=== PATIENT | female | born 1965 | race Two or more races ===

== ENCOUNTER 2016-10-21 09:54 | Emergency (ER) | payer OTHER ==
[~2016-10-21] VITALS: Ht 162.6 cm; Wt 81.6 kg
[~2016-10-21 09:54] MED LIST: RANI150T2 PO; TRAM50TA PO
[2016-10-21] MEDS: FENTANYL PF 100 MCG/2 ML VIAL. IV PRN ×2 (10:50→11:36)
[2016-10-21 10:59] LABS: BASO # 0.1 x10^3/uL (0.0-0.2); BASO % 1 % (0-3); EOS % 0 % (0-3); HEMATOCRIT 41.2 % (36.0-47.0); HEMOGLOBIN 13.8 g/dL (12.0-15.5); LYMPH # 1.9 x10^3/uL (1.0-4.8); LYMPH % 32 % (24-48); MEAN CORPUSCULAR HEMOGLOBIN 31 pg (25-35); MEAN CORPUSCULAR HGB CONC 34 g/dL (31-37); MEAN CORPUSCULAR VOLUME 91 fL (79-100); MONO % 8 % (0-9); NEUT % 59 % (31-73); PLATELET COUNT 230 x10^3/uL (140-400); RED BLOOD COUNT 4.54 x10^6/uL (3.50-5.40); RED CELL DISTRIBUTION WIDTH 14.2 % (11.5-14.5)
[2016-10-21] MEDS ORDERED: ONDANSETRON PF 4 MG/2 ML VIAL. IV ONE (11:00)
[2016-10-21] MEDS ORDERED: IV NORMAL SALINE 1000ML BAG 1,000 ML IV ONE (11:00)
[2016-10-21 11:06] LABS: BILIRUBIN,URINE NEGATIVE (NEG); GLUCOSE,URINE NEGATIVE (NEG); NITRITE,URINE NEGATIVE (NEG); PH,URINE 5.5; PROTEIN,URINE NEGATIVE (NEG-TRACE); UROBILINOGEN,URINE 0.2 mg/dL (0.2 mg/dL)
[2016-10-21 11:07] LABS: CALCIUM 8.8 mg/dL (8.5-10.1); CREATININE 0.6 mg/dL (0.6-1.0); GFR 106.3
[2016-10-21 11:13] LABS: ALBUMIN 3.5 g/dL (3.4-5.0); ALBUMIN/GLOBULIN RATIO 0.9 (1.0-1.7); TOTAL BILIRUBIN 0.2 mg/dL (0.2-1.0); TOTAL PROTEIN 7.3 g/dL (6.4-8.2)
--- NOTE | 2016-10-21 11:15 | RAD ---
Indication epigastric pain for several hours. A single view of the chest as well as flat and upright films of the abdomen were obtained. Comparison is made to a study 02/19/2010. The heart and pulmonary vessels are normal. The lungs are clear. There is no free air. The abdominal gas pattern is normal. No organomegaly or abnormal calculi are seen. A calcification in the right pelvis is noted compatible with a phlebolith similar to the previous exam. IMPRESSION: No acute or significant finding seen in the chest or abdomen on plain films
[2016-10-21 11:19] LABS: BACTERIA,URINE FEW /HPF (0-FEW); RBC,URINE RARE /HPF (0-2); SQUAMOUS EPITHELIAL CELL,UR FEW /LPF; WBC,URINE RARE /HPF (0-4)
--- NOTE | 2016-10-21 12:37 | RAD ---
Indication right upper quadrant pain. Grayscale imaging was performed. The examination was targeted to the right upper quadrant. No similar imaging is available. There is increased attenuation of the ultrasound beam by the liver compatible with fatty infiltration. A focal mass lesion is not seen in the visualized liver. The gallbladder appears normal. The common bile duct diameter of approximately 3 mm is normal. The visualized inferior vena cava is unremarkable and the right kidney appears normal. IMPRESSION: Normal gallbladder. Fatty infiltration of the liver
[2016-10-21] MEDS ORDERED: ONDA4TAB10 SL (13:15)
--- NOTE | 2016-10-21 13:16 | PHYS DOC ---
Past Medical History Past Medical History: No Pertinent History Past Surgical History: Other Additional Past Surgical Histo: CARPEL TUNNEL L, L SHOULDER, RIGHT ANKLE 12/08 Alcohol Use: Occasionally Drug Use: None Adult General Chief Complaint Chief Complaint: ABDOMINAL PAIN HPI HPI Patient is a 51 year old female who presents with abdominal pain. The patient reports onset of pain about 1 hour prior to arrival while drinking a yogurt smoothie. She states she had sudden onset of severe epigastric & RUQ pain associated with vomiting x 1. Denies fevers/chills, hematemesis, diarrhea, constipation, hematochezia/melena, dysuria/hematuria. She has previous history of similar pain & has been told that she has gastric ulcers, inconsistently takes nexium. She is supposed to have EGD next week as an outpatient. She drinks alcohol occasionally. Review of Systems Review of Systems Constitutional: Denies fever or chills HENT: Denies nasal congestion or sore throat Respiratory: Denies cough or shortness of breath Cardiovascular: Denies chest pain or edema GI: Reports abdominal pain, nausea, vomiting, denies bloody stools or diarrhea : Denies dysuria or hematuria Musculoskeletal: Denies back pain or joint pain Integument: Denies rash or skin lesions Neurologic: Denies headache, focal weakness or sensory changes Current Medications Current Medications Current Medications Medications (Trade) Dose Ordered Sig/Arielle Start Time Stop Time Status Last Admin Dose Admin Fentanyl Citrate (Fentanyl 2ml Vial) 50 mcg PRN Q15MIN PRN 10/21/16 10:45 10/21/16 13:34 DC 10/21/16 11:36 50 MCG Ondansetron HCl (Zofran) 4 mg 1X ONCE 10/21/16 11:00 10/21/16 11:01 DC 10/21/16 10:49 4 MG Sodium Chloride (Iv Sodium Chloride 0.9% 1000ml Bag) 1,000 ml @ 1,000 mls/hr 1X ONCE 10/21/16 11:00 10/21/16 11:59 DC 10/21/16 10:53 1,000 MLS/HR Allergies Allergies Allergies Coded Allergies Type Severity Reaction Last Updated Verified No Known Drug Allergies 10/17/15 No Physical Exam Physical Exam Constitutional: Well developed, well nourished, appears very uncomfortable, non -toxic appearance. HENT: Normocephalic, atraumatic, bilateral external ears normal, oropharynx moist, nose normal. Eyes: conjunctiva normal, no discharge. Neck: supple, no stridor. Cardiovascular: RRR, no murmurs, no edema. Lungs & Thorax: LCTAB, no wheezing, no respiratory distress. Abdomen: normal bowel sounds, soft, epigastric & RUQ tenderness present without rebound/guarding, no masses or pulsatile masses, nondistended. Skin: Warm, dry, no erythema, no rash. Back: No CVA tenderness. Extremities: No tenderness, no edema. Neurologic: Alert and oriented X 3, no focal deficits noted. Psychologic: Affect normal, judgement normal, mood normal. Current Patient Data Vital Signs Vital Signs Date Time Temp Pulse Resp B/P Pulse Ox O2 Delivery O2 Flow Rate FiO2 10/21/16 13:25 68 18 136/62 98 Room Air 10/21/16 10:12 97.5 97.5 Lab Values Laboratory Tests Test 10/21/16 09:35 10/21/16 10:25 10/21/16 10:40 POC Urine HCG, Qualitative Hcg negative (Negative) Urine Collection Type Void Urine Color Yellow Urine Clarity Clear Urine pH 5.5 Urine Specific [place] 1.015 Urine Protein Negativemg/dL (NEG-TRACE) Urine Glucose (UA) Negativemg/dL (NEG) Urine Ketones (Stick) Negativemg/dL (NEG) Urine Blood Negative (NEG) Urine Nitrite Negative (NEG) Urine Bilirubin Negative (NEG) Urine Urobilinogen Dipstick 0.2mg/dL (0.2 mg/dL) Urine Leukocyte Esterase Negative (NEG) Urine RBC Rare/HPF (0-2) Urine WBC Rare/HPF (0-4) Urine Squamous Epithelial Cells Few/LPF Urine Bacteria Few/HPF (0-FEW) Urine Mucus Marked/LPF White Blood Count 6.0x10^3/uL (4.0-11.0) Red Blood Count 4.54x10^6/uL (3.50-5.40) Hemoglobin 13.8g/dL (12.0-15.5) Hematocrit 41.2% (36.0-47.0) Mean Corpuscular Volume 91fL (79-100) Mean Corpuscular Hemoglobin 31pg (25-35) Mean Corpuscular Hemoglobin Concent 34g/dL (31-37) Red Cell Distribution Width 14.2% (11.5-14.5) Platelet Count 230x10^3/uL (140-400) Neutrophils (%) (Auto) 59% (31-73) Lymphocytes (%) (Auto) 32% (24-48) Monocytes (%) (Auto) 8% (0-9) Eosinophils (%) (Auto) 0% (0-3) Basophils (%) (Auto) 1% (0-3) Neutrophils # (Auto) 3.5x10^3uL (1.8-7.7) Lymphocytes # (Auto) 1.9x10^3/uL (1.0-4.8) Monocytes # (Auto) 0.5x10^3/uL (0.0-1.1) Eosinophils # (Auto) 0.0x10^3/uL (0.0-0.7) Basophils # (Auto) 0.1x10^3/uL (0.0-0.2) Sodium Level 136mmol/L (136-145) Potassium Level 4.0mmol/L (3.5-5.1) Chloride Level 101mmol/L (98-107) Carbon Dioxide Level 28mmol/L (21-32) Anion Gap 7 (6-14) Blood Urea Nitrogen 9mg/dL (7-20) Creatinine 0.6mg/dL (0.6-1.0) Estimated GFR (Cockcroft-Gault) 106.3 BUN/Creatinine Ratio 15 (6-20) Glucose Level 115mg/dL (70-99) H Calcium Level 8.8mg/dL (8.5-10.1) Total Bilirubin 0.2mg/dL (0.2-1.0) Aspartate Amino Transferase (AST) 16U/L (15-37) Alanine Aminotransferase (ALT) 29U/L (14-59) Alkaline Phosphatase 49U/L (46-116) Troponin I Quantitative < 0.017ng/mL (0.000-0.055) Total Protein 7.3g/dL (6.4-8.2) Albumin 3.5g/dL (3.4-5.0) Albumin/Globulin Ratio 0.9 (1.0-1.7) L Lipase 119U/L (73-393) Laboratory Tests 10/21/16 10:40 Laboratory Tests 10/21/16 10:40 EKG EKG interpreted by me: NSR rate 64, no acute ST/T wave changes, normal intervals, no ectopy.[] Radiology/Procedures Radiology/Procedures PROCEDURE: ACUTE ABDOMEN SERIES Indication epigastric pain for several hours. A single view of the chest as well as flat and upright films of the abdomen were obtained. Comparison is made to a study 02/19/2010. The heart and pulmonary vessels are normal. The lungs are clear. There is no free air. The abdominal gas pattern is normal. No organomegaly or abnormal calculi are seen. A calcification in the right pelvis is noted compatible with a phlebolith similar to the previous exam. IMPRESSION: No acute or significant finding seen in the chest or abdomen on plain films DICTATED and SIGNED BY: VINOD FITCH MD DATE: 10/21/16 1110 PROCEDURE: ABDOMEN LTD Indication right upper quadrant pain. Grayscale imaging was performed. The examination was targeted to the right upper quadrant. No similar imaging is available. There is increased attenuation of the ultrasound beam by the liver compatible with fatty infiltration. A focal mass lesion is not seen in the visualized liver. The gallbladder appears normal. The common bile duct diameter of approximately 3 mm is normal. The visualized inferior vena cava is unremarkable and the right kidney appears normal. IMPRESSION: Normal gallbladder. Fatty infiltration of the liver DICTATED and SIGNED BY: VINOD FITCH MD DATE: 10/21/16 1233[] Course & Med Decision Making Course & Med Decision Making Pertinent Labs and Imaging studies reviewed. (See chart for details) The patient presents with abdominal pain. Gave IV fluids, zofran, pain medication, GI cocktail. Labs, XR, & US show no acute process. She felt better after interventions here & was comfortable with discharge home. Recommend rest, PO hydration, zofran for nausea, continue nexium. Follow up with primary care & with GI for EGD as scheduled. Come back for high fever, severe pain, uncontrolled vomiting, blood in emesis or stools, any otherwise worsening condition. Discharged home in stable & improved condition. [] Dragon Disclaimer Dragon Disclaimer This electronic medical record was generated, in whole or in part, using a voice recognition dictation system. Departure Departure Impression: Primary Impression: Abdominal pain Additional Impression: Nausea & vomiting Disposition: 01 HOME, SELF-CARE Condition: STABLE Referrals: ERIKA AMAYA MD (PCP) Patient Instructions: Abdominal Pain, Ecil-no-Ecrr Additional Instructions: You were seen in the emergency department today for abdominal pain. Tests here did not show a serious cause of symptoms. Please rest, drink clear fluids, take zofran for nausea, take nexium daily. Follow up with Dr. Saba Ag in 2 -3 days. Come back for high fever, severe pain, uncontrolled vomiting, any otherwise worsening condition. Scripts Ondansetron (Zofran Odt)4 Mg Tab.rapdis1 Tab SL Q8HRS PRN NAUSEA #10 TAB Prov:DANDRE DAY MD 10/21/16 Problem Qualifiers DANDRE DAY MD Oct 21, 2016 13:16
[2016-10-21 13:25] VITALS: BP 136/62
--- NOTE | 2016-10-21 15:12 | EKG ---
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
== END 2016-10-21 13:33 | disposition home or self-care (01) ==
LOC: ER 09:54
DX: R10.11 Right upper quadrant pain (principal); R10.13 Epigastric pain; R11.2 Nausea with vomiting, unspecified; K76.0 Fatty (change of) liver, not elsewhere classified; Z87.19 Personal history of other diseases of the digestive system
CPT/HCPCS: 36415; 74022; 76705; 80053; 81001; 81025; 83690; 84484; 85027; 93005; 96361; 96374; 96375; 96376; 99285; J2405; J3010; J7030

== ENCOUNTER → 2017-02-04 | Outpatient (CLI) | payer OTHER ==
[~2017-02-04] MED LIST changes: +ONDA4TAB10 SL
--- NOTE | 2017-02-04 16:18 | RAD ---
Pelvic ultrasound, 02/04/2017: History: Ovarian cysts Transabdominal and transvaginal scans were obtained. There are multiple Nabothian cysts in the cervix. The largest of these measures 1.3 cm. The central uterine echo complex measures 10 mm in AP dimension. The uterus is otherwise unremarkable. The ovaries are within normal limits in size. Small cysts are present in both ovaries. These include a 19 mm simple cyst in the left ovary. A 13 mm thick-walled cyst in the right ovary is also probably a functional cyst. The adnexal regions are otherwise unremarkable. No free fluid is evident in the pelvis. IMPRESSION: 1. Small bilateral ovarian cysts. 2. Small Nabothian cysts. 3. The pelvic ultrasound is otherwise unremarkable.
== END | disposition home or self-care (01) ==
LOC: US 14:52
PROVIDERS: ATTEND Family Medicine
DX: N83.202 Unspecified ovarian cyst, left side (principal); N83.201 Unspecified ovarian cyst, right side; N88.8 Other specified noninflammatory disorders of cervix uteri
CPT/HCPCS: 76830; 76856

== ENCOUNTER 2017-04-20 09:38 | Emergency (ER) | payer OTHER ==
[2017-04-20 10:02] VITALS: BP 166/77
[2017-04-20] MEDS ORDERED: KETOROLAC 60 MG/2 ML INJ. IM ONE (10:45)
[2017-04-20] MEDS ORDERED: HYDROmorphone 2 MG/ML VIAL IM ONE (10:45)
[2017-04-20] MEDS ORDERED: ACET325T9 PO (11:00)
[2017-04-20] MEDS ORDERED: NAPR500T PO (11:00)
[2017-04-20] MEDS ORDERED: DIAZ5TAB PO (11:00)
--- NOTE | 2017-04-20 11:00 | PHYS DOC ---
Past Medical History Past Medical History: No Pertinent History, Ovarian Cyst, Other Past Surgical History: Other Additional Past Surgical Histo: CARPEL TUNNEL L, L SHOULDER, RIGHT ANKLE 12/08 Alcohol Use: Occasionally Drug Use: None Adult General Chief Complaint Chief Complaint: HEADACHE HPI HPI She is a pleasant otherwise healthy 52-year-old female who presents today with a 2 day history of left-sided neck pain now causing a mild frontal headache. Patient works at [employer] doing [employer] who is noted over last several years intermittent neck pain on the left described as a sharp nodded strain. She woke yesterday with similar symptoms that she's had in the past. Is not worse of life and sudden onset. It is not midline tenderness to the lateral left of the neck. It is localized with pain that radiates above the scalp causing a tension-like headache. She causes a bandlike squeezing that causes no change in vision, no nausea no vomiting or photophobia. Patient denies any fevers, URI symptoms or other neurologic deficits. Pain is localized normally she takes couple Tylenol and grossly completely. This. Episode is not gotten better with Tylenol. She was wanting to go to work today because the neck pain she was not able sleep well decided not to go to work but considered, the ER for an evaluation. She denies any chest pain, trauma, nausea, vomiting, diarrhea , abdominal pain or other symptoms. She denies any numbness and tingling to the upper extremities. She has had a history of bilateral carpal tunnel releases but no new symptoms today Review of Systems Review of Systems Constitutional: Denies fever or chills [] Eyes: Denies change in visual acuity, redness, or eye pain [] HENT: Denies nasal congestion or sore throat [] Respiratory: Denies cough or shortness of breath [] Cardiovascular: No additional information not addressed in HPI [] GI: Denies abdominal pain, nausea, vomiting, bloody stools or diarrhea [] : Denies dysuria or hematuria [] Musculoskeletal: Her central complaint is neck pain. Integument: Denies rash or skin lesions [] Neurologic: Denies headache, focal weakness or sensory changes [] Endocrine: Denies polyuria or polydipsia [] Current Medications Current Medications Current Medications Medications (Trade) Dose Ordered Sig/Arielle Start Time Stop Time Status Last Admin Dose Admin Diazepam (Valium) 10 mg 1X ONCE 04/20/17 10:45 04/20/17 10:46 DC 04/20/17 10:49 10 MG Hydromorphone HCl (Dilaudid) 0.5 mg 1X ONCE 04/20/17 10:45 04/20/17 10:46 DC 04/20/17 10:46 0.5 MG Ketorolac Tromethamine (Toradol Im) 60 mg 1X ONCE 04/20/17 10:45 04/20/17 10:46 DC 04/20/17 10:48 60 MG Allergies Allergies Allergies Coded Allergies Type Severity Reaction Last Updated Verified No Known Drug Allergies 10/17/15 No Physical Exam Physical Exam Vital signs on the chart noted to be hypertensive Constitutional: Well developed, well nourished, no acute distress, non-toxic appearance. Patient laying quietly on her side complaining of neck pain with evaluated. HENT: Normocephalic, atraumatic, bilateral external ears normal, oropharynx moist, no oral exudates, nose normal. [] Eyes: PERRLA, EOMI, conjunctiva normal, no discharge. [] Neck: Normal range of motion, patient does have tenderness test reproducible over the superior belly of the trapezius muscle on the left. An incision surgeon point on the skull. There is no focal rash or warmth to the wound. There is no midline tenderness palpation. Patient has negative Spurling's test Cardiovascular:Heart rate regular rhythm, no murmur [] Lungs & Thorax: Bilateral breath sounds clear to auscultation [] Skin: Warm, dry, no erythema, no rash. [] Back: No tenderness, no CVA tenderness. [] Extremities: No tenderness, no cyanosis, no clubbing, ROM intact, no edema. [] Neurologic: Alert and oriented X 3, normal motor function, normal sensory function, no focal deficits noted. [] Current Patient Data Vital Signs Vital Signs Date Time Temp Pulse Resp B/P (MAP) Pulse Ox O2 Delivery O2 Flow Rate FiO2 04/20/17 10:02 98.1 64 18 166/77 (106) 99 Room Air 98.1 EKG EKG [] Radiology/Procedures Radiology/Procedures [] Course & Med Decision Making Course & Med Decision Making Pertinent Labs and Imaging studies reviewed. (See chart for details) Patient presents with likely torticollis and local muscle spasm within the neck. This is likely contributing to tension headache given her postural changes. Patient has a normal neuro exam, focal reproducible pain on exam. Doubt meningitis, or cervical radiculopathy. No evidence of vascular compromise or neuropathy in the upper extremity from C5 to T1. There is no midline tenderness palpation doubt cervical spine injury. She feels markedly improved and the time is 10:57 AM she'll be given oral medications to treat her symptoms. [] Dragon Disclaimer Dragon Disclaimer This electronic medical record was generated, in whole or in part, using a voice recognition dictation system. Departure Departure Impression: Primary Impression: Torticollis Additional Impressions: Sprain of cervical neck Tension headache Disposition: HOME, SELF-CARE Condition: IMPROVED Referrals: ERIKA AMAYA MD (PCP) Patient Instructions: Hypertension, Tension Headache, Torticollis, Acute Additional Instructions: My discharge plan Follow up: In addition patient is asked to followup with their primary doctor, within a week for followup examination and to address patient's ongoing medical conditions. Patient is advised that in the Emergency Department primary complaints are addressed and only in light of known signs and symptoms. Patient should return immediately to the emergency department if new signs and symptoms develop or patient's condition worsens in any way. At time of discharge patient was in stable condition and had verbalized understanding of the discharge instructions. Scripts Diazepam (VALIUM) 5 Mg Tablet 5 MG PO TID for MUSCLE SPASMS for 5 Days, #15 TAB Prov: MANUEL GARDINER MD 04/20/17 Acetaminophen (TYLENOL) 325 Mg Tablet 1-2 TAB PO QID, #60 TAB 0 Refills Prov: MANUEL GARDINER MD 04/20/17 Naproxen (NAPROSYN) 500 Mg Tablet 1 TAB PO BID, #14 TAB 1 Refill Prov: MANUEL GARDINER MD 04/20/17 Problem Qualifiers MANUEL GARDINER MD Apr 20, 2017 11:00
== END 2017-04-20 11:09 | disposition home or self-care (01) ==
LOC: ER 09:38
DX: S13.4XXA Sprain of ligaments of cervical spine, initial encounter (principal); M43.6 Torticollis; G44.209 Tension-type headache, unspecified, not intractable; G56.03 Carpal tunnel syndrome, bilateral upper limbs; X58.XXXA Exposure to other specified factors, initial encounter; Y93.89 Activity, other specified; Y99.8 Other external cause status; Y92.89 Other specified places as the place of occurrence of the external cause
CPT/HCPCS: 96372; 99284; J1170; J1885; J3360

== ENCOUNTER 2017-06-13 21:20 | Emergency (ER) | payer OTHER ==
[~2017-06-13] VITALS: Ht 157.5 cm; Wt 77.1 kg
[~2017-06-13 21:20] MED LIST changes: +ACET325T9 PO; +DIAZ5TAB PO; +NAPR-683 PO
--- NOTE | 2017-06-13 21:45 | PHYS DOC ---
Past Medical History Past Medical History: No Pertinent History, Ovarian Cyst, Other Past Surgical History: Other Additional Past Surgical Histo: CARPEL TUNNEL L, L SHOULDER, RIGHT ANKLE 12/08 Alcohol Use: Occasionally Drug Use: None Adult General Chief Complaint Chief Complaint: ABDOMINAL PAIN HPI HPI Patient is a 52 year old female with history of gastritis who presents acute onset of midepigastric 3 hours prior to arrival after eating. Patient describes burning nonradiating, rated moderate to severe. Denies symptoms of associated with nausea, no vomiting hematemesis coffee-ground emesis, bloody stools or dark tarry stools.Denies shortness breath, palpitations, fever chills or sweats. Patient states they did not find ulcers, but that she was diagnosed with gastritis. History of intermittent epigastric pain with recent EGD in spring. She takes omeprazole 20 mg once daily. Patient has also had gallbladder ultrasound in the past several months which was normal. [] Review of Systems Review of Systems ROS as per HPI. All other ROS are negative [] All other systems were reviewed and found to be within normal limits, except as documented in this note. Current Medications Current Medications Current Medications Medications (Trade) Dose Ordered Sig/Arielle Start Time Stop Time Status Last Admin Dose Admin Famotidine (Pepcid) 20 mg 1X ONCE 06/13/17 22:00 06/13/17 22:01 DC 06/13/17 21:52 20 MG Haloperidol Lactate (Haldol) 2.5 mg 1X ONCE 06/13/17 23:00 06/13/17 23:01 DC 06/13/17 22:53 2.5 MG Info (Do NOT chart on this entry -- for MONITORING) 1 each PRN DAILY PRN 06/13/17 23:00 06/14/17 00:17 IN Iohexol (Omnipaque 300 Mg/ml) 75 ml 1X ONCE 06/13/17 23:00 06/13/17 23:01 DC 06/13/17 23:12 75 ML Multi-Ingredient Mouthwash/Gargle (Gi Cocktail Single Dose) 30 ml 1X ONCE 06/13/17 22:00 06/13/17 22:01 DC 06/13/17 22:09 30 ML Ondansetron HCl (Zofran Odt) 8 mg 1X ONCE 06/13/17 22:00 06/13/17 22:01 DC 06/13/17 21:52 8 MG Allergies Allergies Allergies Coded Allergies Type Severity Reaction Last Updated Verified No Known Drug Allergies 10/17/15 No Physical Exam Physical Exam Constitutional: Well developed, well nourished, moderate discomfort secondary to pain. [] HENT: Normocephalic, atraumatic, bilateral external ears normal, oropharynx moist, no oral exudates, nose normal. [] Eyes: PERRLA, EOMI, conjunctiva normal, no discharge. [] Neck: Normal range of motion, no tenderness, supple, no stridor. [] Cardiovascular:Heart rate regular rhythm, no murmur [] Lungs & Thorax: Bilateral breath sounds clear to auscultation [] Abdomen: Bowel sounds normal, soft, mid epigastric pain/tenderness, no masses, no pulsatile masses. [] Neurologic: Alert and oriented X 3, normal motor function, normal sensory function, no focal deficits noted. [] Psychologic: Affect normal, judgement normal, mood normal. [] Current Patient Data Vital Signs Vital Signs Date Time Temp Pulse Resp B/P (MAP) Pulse Ox O2 Delivery O2 Flow Rate FiO2 06/13/17 23:30 70 175/78 (110) 94 Room Air 06/13/17 21:30 98.2 22 98.2 Lab Values Laboratory Tests Test 06/13/17 21:33 06/13/17 22:35 POC Urine HCG, Qualitative Hcg negative (Negative) White Blood Count 6.1 x10^3/uL (4.0-11.0) Red Blood Count 4.53 x10^6/uL (3.50-5.40) Hemoglobin 13.7 g/dL (12.0-15.5) Hematocrit 41.5 % (36.0-47.0) Mean Corpuscular Volume 92 fL (79-100) Mean Corpuscular Hemoglobin 30 pg (25-35) Mean Corpuscular Hemoglobin Concent 33 g/dL (31-37) Red Cell Distribution Width 13.8 % (11.5-14.5) Platelet Count 241 x10^3/uL (140-400) Neutrophils (%) (Auto) 45 % (31-73) Lymphocytes (%) (Auto) 45 % (24-48) Monocytes (%) (Auto) 8 % (0-9) Eosinophils (%) (Auto) 1 % (0-3) Basophils (%) (Auto) 1 % (0-3) Neutrophils # (Auto) 2.7 x10^3uL (1.8-7.7) Lymphocytes # (Auto) 2.7 x10^3/uL (1.0-4.8) Monocytes # (Auto) 0.5 x10^3/uL (0.0-1.1) Eosinophils # (Auto) 0.1 x10^3/uL (0.0-0.7) Basophils # (Auto) 0.1 x10^3/uL (0.0-0.2) Sodium Level 140 mmol/L (136-145) Potassium Level 3.9 mmol/L (3.5-5.1) Chloride Level 103 mmol/L (98-107) Carbon Dioxide Level 27 mmol/L (21-32) Anion Gap 10 (6-14) Blood Urea Nitrogen 14 mg/dL (7-20) Creatinine 0.6 mg/dL (0.6-1.0) Estimated GFR (Cockcroft-Gault) 105.8 BUN/Creatinine Ratio 23 (6-20) H Glucose Level 124 mg/dL (70-99) H Calcium Level 8.9 mg/dL (8.5-10.1) Total Bilirubin 0.3 mg/dL (0.2-1.0) Aspartate Amino Transferase (AST) 18 U/L (15-37) Alanine Aminotransferase (ALT) 32 U/L (14-59) Alkaline Phosphatase 54 U/L (46-116) Total Protein 7.5 g/dL (6.4-8.2) Albumin 3.8 g/dL (3.4-5.0) Albumin/Globulin Ratio 1.0 (1.0-1.7) Lipase 144 U/L (73-393) Laboratory Tests 06/13/17 22:35 Laboratory Tests 06/13/17 22:35 EKG EKG [] Radiology/Procedures Radiology/Procedures [CT abdomen pelvis: No acute abnormalities per radiology report] Course & Med Decision Making Course & Med Decision Making Pertinent Labs and Imaging studies reviewed. (See chart for details) [Symptoms significantly improved with treatment. Recommend Home supportive care with PCP follow-up. Return precautions reviewed.] Dragon Disclaimer Dragon Disclaimer This electronic medical record was generated, in whole or in part, using a voice recognition dictation system. Departure Departure Impression: Primary Impression: Abdominal pain Additional Impression: Gastritis Disposition: 01 HOME, SELF-CARE Condition: GOOD Referrals: ERIKA AMAYA MD (PCP) Problem Qualifiers TENA BENDER DO Jun 13, 2017 21:45
[2017-06-13] MEDS ORDERED: FAMOTIDINE 20 MG TABLET. PO ONE (22:00)
[2017-06-13] MEDS ORDERED: LIDO:MAALOX:DONNATAL 1:1:1 15 ML SINGLE DOSE SWSW ONE (22:00)
[2017-06-13] MEDS ORDERED: ONDANSETRON ODT 4 MG TAB.RAPDIS. PO ONE (22:00)
[2017-06-13 22:42] LABS: BASO # 0.1 x10^3/uL (0.0-0.2); BASO % 1 % (0-3); EOS % 1 % (0-3); HEMATOCRIT 41.5 % (36.0-47.0); HEMOGLOBIN 13.7 g/dL (12.0-15.5); LYMPH # 2.7 x10^3/uL (1.0-4.8); LYMPH % 45 % (24-48); MEAN CORPUSCULAR HEMOGLOBIN 30 pg (25-35); MEAN CORPUSCULAR HGB CONC 33 g/dL (31-37); MEAN CORPUSCULAR VOLUME 92 fL (79-100); MONO % 8 % (0-9); NEUT % 45 % (31-73); PLATELET COUNT 241 x10^3/uL (140-400); RED BLOOD COUNT 4.53 x10^6/uL (3.50-5.40); RED CELL DISTRIBUTION WIDTH 13.8 % (11.5-14.5); WHITE BLOOD COUNT 6.1 x10^3/uL (4.0-11.0)
[2017-06-13 22:54] LABS: CALCIUM 8.9 mg/dL (8.5-10.1); CREATININE 0.6 mg/dL (0.6-1.0); GFR 105.8; POTASSIUM 3.9 mmol/L (3.5-5.1)
[2017-06-13 23:00] LABS: ALBUMIN 3.8 g/dL (3.4-5.0); TOTAL BILIRUBIN 0.3 mg/dL (0.2-1.0); TOTAL PROTEIN 7.5 g/dL (6.4-8.2)
[2017-06-13] MEDS ORDERED: CONTRAST GIVEN MC PRN (23:00)
[2017-06-13] MEDS ORDERED: HALOPERIDOL LACTATE 5 MG/ML VIAL. IVP ONE (23:00)
[2017-06-13] MEDS ORDERED: IOHEXOL 300 MG/ML 100ML VIAL. IV ONE (23:00)
[2017-06-13 23:30] VITALS: BP 175/78
--- NOTE | 2017-06-13 23:37 | RAD ---
CT abdomen and pelvis with contrast Indication: epigastric pain today, [id number] 75ml, no priors. . Technique: Intravenous contrast is given. No oral contrast as per request. Comparison:None available Exposure: One or more of the following individualized dose reduction techniques were utilized for this examination: 1. Automated exposure control 2. Adjustment of the mA and/or kV according to patient size 3. Use of iterative reconstruction technique. FINDINGS: Lower thorax: Lung bases are clear. Pneumoperitoneum:No gross pneumoperitoneum. Liver: Mildly hypodense, compatible with fatty infiltration. Spleen: Unremarkable Pancreas: Unremarkable Adrenals:No evidence of mass. Kidneys:Unremarkable Gallbladder: No calcified stone Aorta: Abdominal aorta is nonaneurysmal Lymph nodes: No significant enlargement GI tract: No bowel obstruction. No paracolonic inflammation. Appendix:Visualized, appears within normal limits. Ascites: No gross ascites. Urinary bladder: Not opacified, but no apparent abnormality. No evidence of pelvic mass. Bones: No destructive process. IMPRESSION: No evidence of acute abnormality. Mild hepatic steatosis. Electronically signed by: Sagar Javier MD (06/13/2017 11:34 PM) [place] [id number]
== END 2017-06-14 00:15 | disposition home or self-care (01) ==
LOC: ER 21:20
DX: K29.70 Gastritis, unspecified, without bleeding (principal)
CPT/HCPCS: 36415; 74177; 80053; 81025; 83690; 85025; 96374; 99285; J1630; Q0162; Q9967

== ENCOUNTER → 2017-06-25 | Outpatient (CLI) | payer OTHER ==
[2017-06-13 23:30] VITALS: BP 175/78
--- NOTE | 2017-06-25 10:43 | RAD ---
Indication: Ovarian cyst, follow-up. Comparison is made with prior ultrasound from 02/04/2017. Transabdominal and transvaginal pelvic sonography was performed. The uterus measures 10.3 x 4.6 x 6.1 cm. The endometrium is thickened at 13 mm. No uterine mass is detected. The right ovary measures 2.6 x 2.0 x 2.2 cm and the left ovary measures 2.8 x 1.6 x 2.2 cm. There is blood flow to both ovaries. There is a right ovarian cyst measuring 2.0 x 1.2 x 1.2 cm. This compares with approximately 1.3 cm on prior exam. Previously noted left ovarian cyst is no longer visualized. There does appear to be a fluid-filled tubular structure in the left adnexa measuring 5 mm in diameter, suspicious for hydrosalpinx. Trace free fluid is present. Impression: 1. 2 cm simple right ovarian cyst. 2. Thickened endometrium of 13 mm. 3. Previously noted left ovarian cyst is no longer visualized. 4. Findings suspicious for left hydrosalpinx.
== END | disposition home or self-care (01) ==
LOC: US 09:35
PROVIDERS: ATTEND Family Medicine
DX: N83.201 Unspecified ovarian cyst, right side (principal)
CPT/HCPCS: 76830; 76856

== ENCOUNTER → 2018-01-19 | Outpatient (CLI) | payer OTHER | END | disposition home or self-care (01) | LOC: MAMMO 09:20 | DX: N63.20 Unspecified lump in the left breast, unspecified quadrant (principal) | CPT/HCPCS: 76641; 77066 ==

== ENCOUNTER → 2019-03-10 | Outpatient (CLI) | payer OTHER ==
--- NOTE | 2019-03-11 14:13 | RAD ---
DATE: 03/10/2019 12:47 PM EXAM: DIGITAL SCREEN BILAT W/CAD HISTORY: routine screening evaluation. COMPARISON: Prior mammographic imaging 01/19/2018, 02/06/2016 Bilateral full field craniocaudal and mediolateral oblique images were obtained using digital technique. This study was interpreted with the benefit of Computerized Aided Detection (CAD). FINDINGS: Breast Density: SCATTERED The breast parenchyma shows scattered fibroglandular densities. Breast parenchyma level B Benign calcifications are present. The parenchymal pattern appears stable. No suspicious masses, microcalcifications or architectural distortion is present to suggest malignancy in either breast. The visualized axillae are unremarkable. IMPRESSION: No mammographic evidence of malignancy. BI-RADS CATEGORY: 2 BENIGN FINDING(S) RECOMMENDED FOLLOW-UP: 12M 12 MONTH FOLLOW-UP Annual screening mammography is recommended, unless clinically indicated sooner based on symptoms or change in physical exam. PQRS compliance statement: Patient information was entered into a reminder system with a target due date for the next mammogram. Mammography is a sensitive method for finding small breast cancers, but it does not detect them all and is not a substitute for careful clinical examination. A negative mammogram does not negate a clinically suspicious finding and should not result in delay in biopsying a clinically suspicious abnormality. "Our facility is accredited by the [employer] Mammography Program."
== END | disposition home or self-care (01) ==
LOC: MAMMO 12:37
PROVIDERS: ATTEND Family Medicine
DX: Z12.31 Encounter for screening mammogram for malignant neoplasm of breast (principal)
CPT/HCPCS: 77067

== ENCOUNTER 2021-10-14 17:22 | Emergency (ER) | payer OTHER ==
[~2021-10-14] VITALS: Ht 157.5 cm; Wt 77.3 kg
[2021-10-14 17:57] VITALS: BP 188/91
[2021-10-14] MEDS ORDERED: METF500T16 PO (19:09)
[2021-10-14] MEDS ORDERED: ROSU10TA26 PO (19:09)
--- NOTE | 2021-10-14 19:10 | PHYS DOC ---
Past Medical History Past Medical History: Diabetes-Type II, High Cholesterol, Hypothyroid, Ovarian Cyst, Other Past Surgical History: Other Additional Past Surgical Histo: CARPEL TUNNEL L, L SHOULDER, RIGHT ANKLE 12/08 Smoking Status: Never Smoker Alcohol Use: Occasionally Drug Use: None General Adult EDM: Chief Complaint: MEDICATION REFILL HPI: HPI: Patient is a 56 year old female who presents for medication refills. Patient recently reobtained health insurance and has an appointment with a new primary care provider on 11/01/2021. This new doctor will not refill the medication she was previously prescribed which include Metformin, levothyroxine and rosuvastatin. Patient is requesting 1 month supply of these medications to bridge her to her new primary care doctor appointment. She states she has a mild headache in the back of her head, but otherwise denies all physical complaints. Review of Systems: Review of Systems: ROS negative or noncontributory except as mentioned in HPI. Heart Score: C/O Chest Pain: No Allergies: Allergies: Allergies Coded Allergies Type Severity Reaction Last Updated Verified No Known Drug Allergies 10/17/15 No Physical Exam: PE: Constitutional: Well developed, well nourished, no acute distress, non-toxic appearance. HENT: Normocephalic, atraumatic, bilateral external ears normal, nose normal. Eyes: EOMI, conjunctiva normal, no discharge. Neck: Normal range of motion, no stridor. Skin: Warm, dry, no erythema, no rash. Extremities: No cyanosis, no clubbing, ROM intact, no edema. Neurologic: Alert and oriented x4, normal motor function, normal sensory function, no focal deficits noted. Current Patient Data: Vital Signs: Vital Signs Date Time Temp Pulse Resp B/P (MAP) Pulse Ox O2 Delivery O2 Flow Rate FiO2 10/14/21 17:57 98.0 69 18 188/91 (123) 98 Room Air 98.0 Course & Med Decision Making: Course & Med Decision Making Pertinent Labs and Imaging studies reviewed. (See chart for details) In reviewing patient's medication bottles, it seems as though patient does have plenty of refills left for levothyroxine 0.05 mg tablet. However, she will need refills for the Metformin 500 mg as well as rosuvastatin 10 mg. Rylan Disclaimer: Rylan Disclaimer: This electronic medical record was generated, in whole or in part, using a voice recognition dictation system. Departure Departure Impression: Primary Impression: Encounter for medication refill Additional Impression: Elevated blood pressure reading Disposition: HOME / SELF CARE / HOMELESS Condition: STABLE Referrals: NO PCP (PCP) Patient Instructions: How to Take Your Blood Pressure, [id number], Medication Refill, Emergency Department Additional Instructions: EMERGENCY DEPARTMENT GENERAL DISCHARGE INSTRUCTIONS Thank you for coming to [facility] Emergency Department (ED) today and trusting us with you care. We trust that you had a positive experience in our Emergency Department. If you wish to speak to the department management, you may call the director at . YOUR FOLLOW UP INSTRUCTIONS ARE FOLLOWS: 1. Follow up with your primary care doctor. If you do not have a primary doctor, please ask for a resource list of physicians or clinics that may be able to assist you with follow up care. 2. The emergency provider has interpreted your imaging studies, if any were ordered. The radiology content production specialist also reviewed them. If there is a change in the findings, you will be notified in 48 hours when at all possible. 3. If a lab test or culture has been done, your results will be reviewed and you will be notified if you need a change in treatment. 4. Follow instructions verbalized to you and refer to the printouts if needed. ADDITIONAL INSTRUCTIONS AND INFORMATION: 1. Your care today has been supervised by a physician who is specially trained in emergency care. Many problems require more than one evaluation for a complete diagnosis and treatment. We recommend that you schedule your follow up appointment as recommended to ensure complete treatment of you illness or injury. If you are unable to obtain follow up care and continue to have a problem, or if your condition worsens, we recommend that you return to the ED. 2. We are not able to safely determine your condition over the phone nor are we able to give sound medical advice over the phone. For these safety reasons, if you call for medical advice we will ask you to come to the ED for further evaluation. 3. If you have any questions regarding these discharge instructions please call the ED at . SAFETY INFORMATION: In the interest of safety, wellness, and injury prevention; we encourage you to wear your seat belt, if you smoke; quite smoking, and we encourage family to use a protective helmet for bicycling and other sporting events that present an increased risk for head injury. IF YOUR SYMPTOMS WORSEN OR NEW SYMPTOMS DEVELOP, OR YOU HAVE CONCERNS ABOUT YOUR CONDITION; OR IF YOUR CONDITION WORSENS WHILE YOU ARE WAITING FOR YOUR FOLLOW UP APPOINTMENT; EITHER CONTACT YOUR PRIMARY CARE DOCTOR, THE PHYSICIAN WHOSE NAME AND NUMBER YOU WERE GIVEN, OR RETURN TO THE ED IMMEDIATELY. Scripts Rosuvastatin Calcium (Rosuvastatin Calcium) 10 Mg Tablet 10 MG PO DAILY for 30 Days, #30 TAB 0 Refills Prov: SARBJIT RIVERO 10/14/21 Metformin Hcl (METFORMIN HCL) 500 Mg Tablet 500 MG PO BIDWMEALS for ANTI-DIABETIC for 30 Days, #60 TAB 0 Refills Prov: SARBJIT RIVERO 10/14/21 SARBJIT RIVERO Oct 14, 2021 19:10
== END 2021-10-14 19:21 | disposition home or self-care (01) ==
LOC: ER 17:22
DX: R51.9 Headache, unspecified (principal); R03.0 Elevated blood-pressure reading, without diagnosis of hypertension; E11.9 Type 2 diabetes mellitus without complications; Z76.0 Encounter for issue of repeat prescription; E78.00 Pure hypercholesterolemia, unspecified; E03.9 Hypothyroidism, unspecified
CPT/HCPCS: 99281